=== PATIENT | female | born 1960 | race Caucasian/White ===

== ENCOUNTER 2017-11-19 08:30 | Inpatient (IN) | payer OTHER ==
[2017-11-19 09:24] LABS: Basophils # (Auto) 0.1 K/mm3 (0.0-0.1); Eosinophils # (Auto) 0.3 K/mm3 (0.0-0.4); Eosinophils % (Auto) 3.6 % (0.0-4.3); Hematocrit 32.1 % (30.3-42.9); Hemoglobin 10.3 gm/dl (10.1-14.3); Lymphocytes # (Auto) 2.4 K/mm3 (1.2-5.4); Lymphocytes % (Auto) 29.5 % (13.4-35.0); Mean Corpuscular HGB Conc 32 % (30-34); Mean Corpuscular Volume 79 fl (79-97); Monocytes # (Auto) 0.7 K/mm3 (0.0-0.8); Monocytes % (Auto) 8.6 % (0.0-7.3); Platelet Count 550 K/mm3 (140-440); Red Blood Count 4.06 M/mm3 (3.65-5.03); Red Cell Distribution Width 14.3 % (13.2-15.2)
[2017-11-19 09:29] LABS: Alanine Aminotransferase 15 units/L (7-56); Albumin 3.3 g/dL (3.9-5); BUN/Creatinine Ratio 37; Blood Urea Nitrogen 11 mg/dL (7-17); Calcium 9.3 mg/dL (8.4-10.2); Hemolysis Index 50; Lipase 22 units/L (13-60)
[2017-11-19 09:45] LABS: Mean Corpuscular Hemoglobin 25 pg (28-32)
[2017-11-19 09:45] LABS: Bacteria,Urine 1+ /HPF (Negative); Bilirubin,Urine NEG (Negative); Blood,Urine NEG (Negative); Color,Urine Yellow (Yellow); Mucus,Urine FEW /HPF; Urobilinogen,Urine < 2.0 mg/dL (<2.0)
[2017-11-19] MEDS ORDERED: PROTONIX IV ONE (10:04)
[2017-11-19] MEDS ORDERED: NACL 0.9% 1000 ML 1,000 ML IV ONE (10:04)
[2017-11-19] MEDS ORDERED: ZOFRAN IV ONE ×2 (10:04→14:38)
[2017-11-19] MEDS ORDERED: MORPHINE IV ONE (10:04)
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
--- NOTE | 2017-11-19 11:27 | Cat Scan Report ---
CT ABDOMEN PELVIS WITH CONTRAST: HISTORY: abdominal pain, left flank pain. COMPARISON: none. TECHNIQUE: Helical CT in 1.25mm intervals following IV contrast. Sagittal and coronal reconstructions. FINDINGS: Lung bases: Normal. Liver: Normal. Biliary system: There are multiple calcified gallstones. No biliary dilatation or inflammation. Pancreas: Normal. Spleen: Normal. Kidneys/ureters/bladder: There appears to be a small encapsulated collection posterior to left kidney measuring 3.7 x 1.7 cm. The etiology of this is unclear. This could represent a resolving hematoma or abscess. Please correlate with the patient's history. There are a few scattered renal cysts. No evidence for mass or hydronephrosis. The ureters and bladder are unremarkable. Adrenal glands: Normal. Aorta: Normal. Intestines: There is a small area of focal bowel wall thickening in the ascending colon with surrounding inflammatory fat stranding. This may represent a focal colitis. There is no obvious underlying mass although it cannot be excluded. No obvious diverticula in this area. The remaining bowel loops are within normal limits. Appendix: Not confidently identified. Pelvic viscera: Normal. Ascites: None. Adenopathy: None. Musculoskeletal: Normal. IMPRESSION: Left perinephric collection as described above. Small area of inflammation in the ascending colon which is most consistent with a focal colitis. Cholelithiasis. Scattered renal cysts.
[2017-11-19] MEDS ORDERED: DILAUDID IV ONE ×2 (12:08→14:38)
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
--- NOTE | 2017-11-19 13:45 | Event Note ---
Date: 11/19/17 Reviewed history, CT, and lab findings. I spoke with Dr. Velasco from urology. We collectively decided that in light of her poor blood glucose control, no leukocytosis, and being afebrile, conservative management is appropriate for now. The patient can be reimaged after antibiotics and medical optimization. Should there be a continued need for drainage, our service can be contacted again. Thank you.
[2017-11-19] MEDS ORDERED: REGLAN IV ONE (15:53)
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
[2017-11-20] MEDS: NACL 0.9% 1000 ML 1,000 ML IV SCH ×2 (00:38→12:38)
[2017-11-20] MEDS: MORPHINE IV PRN (01:27)
[2017-11-20] MEDS: NOVOLOG SUB-Q SCH ×4 (08:32→22:55)
[2017-11-20] MEDS ORDERED: ZESTRIL PO SCH (10:00)
[2017-11-20] MEDS: GLUCOPHAGE PO SCH ×2 (10:35→18:25)
[2017-11-20] MEDS: COZAAR PO SCH (10:35)
[2017-11-20] MEDS: cefTRIAXone 2 GM in NACL 0.9% 20 ML IV SCH (12:33)
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
--- NOTE | 2017-11-20 16:39 | Cat Scan Report ---
FINAL REPORT EXAM: CT ABDOMEN PELVIS WO CON HISTORY: abscess----kidney TECHNIQUE: CT abdomen and pelvis without contrast PRIORS: None. FINDINGS: No acute abnormality identified in the lung bases. No focal abnormality identified within the liver parenchyma. Multiple dense foci are seen layering within the lumen of the gallbladder consistent with small stones. The spleen demonstrates normal size and attenuation. No pancreatic abnormalities seen. Right kidney demonstrates no evidence for hydronephrosis or nephrolithiasis. There is mild right perinephric stranding. There is a focal hypodensity at the upper pole the right kidney measuring 2.9 centimeters probable cyst although incompletely characterized. There is prominent left perinephric stranding with focal intermediate density collection posterior to the left kidney in the perinephric space. No evidence for hydronephrosis. No evidence for nephrolithiasis no ureteral calculi are identified. The adrenal glands are unremarkable. Abdominal aorta is normal in caliber. No pathologically enlarged lymph nodes are identified. No signs of free fluid or free air No evidence of small bowel dilatation. No evidence of colonic dilatation. No pericolonic inflammatory change seen. Noted is a calcification at the and fundus of the uterus most consistent with a calcified a subserosal fibroid. IMPRESSION: Left perinephric stranding with a low-density of collection in the perinephric space. Nonspecific finding could reflect bacterial nephritis, postobstructive finding or subacute hemorrhagic collection. Cholelithiasis Calcified subserosal uterine fibroid noted.
--- NOTE | 2017-11-20 17:20 | Progress Note ---
Assessment and Plan Assessment and plan: 57f with uncontrolled dm, insulin dependent, pw with left flank pain and fever Left Perinephric abscess Urology and IR consults appreciated.planned for drainage, will repeat CT continue abx UTI fup urine cx, continue abx T2DM (type 2 diabetes mellitus), uncontrolled continue insulins, a1c 11 HTN (hypertension) continue to optimize BP meds Hyponatremia resolved Hyperkalemia mild, monitor levels History Interval history: c/o L flank pain c/o fever no nausea, no vomiting, no cp no sob Hospitalist Physical - Constitutional Vitals: Temp Pulse Resp BP Pulse Ox 98.2 F 73 14 134/56 97 11/20/17 08:06 11/20/17 08:06 11/20/17 08:06 11/20/17 08:06 11/20/17 08:06 General appearance: Present: no acute distress, well-nourished - EENT Eyes: Present: PERRL ENT: hearing intact, clear oral mucosa - Neck Neck: Present: supple, normal ROM - Respiratory Respiratory effort: normal Respiratory: bilateral: CTA - Cardiovascular Rhythm: regular Heart Sounds: Present: S1 & S2 - Extremities Extremities: no ischemia, No edema Peripheral Pulses: within normal limits - Abdominal General gastrointestinal: soft, non-tender, other (left flank tenderness) - Integumentary Integumentary: Present: clear, warm, dry - Psychiatric Psychiatric: appropriate mood/affect, intact judgment & insight - Neurologic Neurologic: CNII-XII intact, moves all extremities Results - Labs CBC & Chem 7: 11/19/17 08:51 11/19/17 08:51 Labs: Laboratory Last Values WBC 8.1 K/mm3 (4.5-11.0) 11/19/17 08:51 RBC 4.06 M/mm3 (3.65-5.03) 11/19/17 08:51 Hgb 10.3 gm/dl (10.1-14.3) 11/19/17 08:51 Hct 32.1 % (30.3-42.9) 11/19/17 08:51 MCV 79 fl (79-97) 11/19/17 08:51 MCH 25 pg (28-32) L 11/19/17 08:51 MCHC 32 % (30-34) 11/19/17 08:51 RDW 14.3 % (13.2-15.2) 11/19/17 08:51 Plt Count 550 K/mm3 (140-440) H 11/19/17 08:51 Lymph % (Auto) 29.5 % (13.4-35.0) 11/19/17 08:51 [place] % (Auto) 8.6 % (0.0-7.3) H 11/19/17 08:51 Eos % (Auto) 3.6 % (0.0-4.3) 11/19/17 08:51 Baso % (Auto) 1.0 % (0.0-1.8) 11/19/17 08:51 Lymph # 2.4 K/mm3 (1.2-5.4) 11/19/17 08:51 [place] # 0.7 K/mm3 (0.0-0.8) 11/19/17 08:51 Eos # 0.3 K/mm3 (0.0-0.4) 11/19/17 08:51 Baso # 0.1 K/mm3 (0.0-0.1) 11/19/17 08:51 Seg Neutrophils % 57.3 % (40.0-70.0) 11/19/17 08:51 Seg Neutrophils # 4.6 K/mm3 (1.8-7.7) 11/19/17 08:51 Sodium 132 mmol/L (137-145) L 11/19/17 08:51 Potassium 5.1 mmol/L (3.6-5.0) H 11/19/17 08:51 Chloride 100.9 mmol/L (98-107) 11/19/17 08:51 Carbon Dioxide 23 mmol/L (22-30) 11/19/17 08:51 Anion Gap 13 mmol/L 11/19/17 08:51 BUN 11 mg/dL (7-17) 11/19/17 08:51 Creatinine 0.3 mg/dL (0.7-1.2) L 11/19/17 08:51 Estimated GFR > 60 ml/min 11/19/17 08:51 BUN/Creatinine Ratio 37 % 11/19/17 08:51 Glucose 224 mg/dL (65-100) H 11/19/17 08:51 POC Glucose 219 (70-105) H 11/20/17 11:19 Hemoglobin A1c 11.1 % (4-6) H 11/20/17 07:23 Calcium 9.3 mg/dL (8.4-10.2) 11/19/17 08:51 Total Bilirubin 0.20 mg/dL (0.1-1.2) 11/19/17 08:51 AST < 15 units/L (5-40) 11/19/17 08:51 ALT 15 units/L (7-56) 11/19/17 08:51 Alkaline Phosphatase 134 units/L (35-129) H 11/19/17 08:51 Total Protein 7.8 g/dL (6.3-8.2) 11/19/17 08:51 Albumin 3.3 g/dL (3.9-5) L 11/19/17 08:51 Albumin/Globulin Ratio 0.7 % 11/19/17 08:51 Lipase 22 units/L (13-60) 11/19/17 08:51 Urine Color Yellow (Yellow) 11/19/17 09:04 Urine Turbidity Clear (Clear) 11/19/17 09:04 Urine pH 5.0 (5.0-7.0) 11/19/17 09:04 Ur Specific [place] 1.011 (1.003-1.030) 11/19/17 09:04 Urine Protein 100 mg/dl mg/dL (Negative) 11/19/17 09:04 Urine Glucose (UA) Neg mg/dL (Negative) 11/19/17 09:04 Urine Ketones Neg mg/dL (Negative) 11/19/17 09:04 Urine Blood Neg (Negative) 11/19/17 09:04 Urine Nitrite Neg (Negative) 11/19/17 09:04 Urine Bilirubin Neg (Negative) 11/19/17 09:04 Urine Urobilinogen < 2.0 mg/dL (<2.0) 11/19/17 09:04 Ur Leukocyte Esterase Tr (Negative) 11/19/17 09:04 Urine WBC (Auto) 12.0 /HPF (0.0-6.0) H 11/19/17 09:04 Urine RBC (Auto) 1.0 /HPF (0.0-6.0) 11/19/17 09:04 Urine Bacteria (Auto) 1+ /HPF (Negative) 11/19/17 09:04 Urine Mucus Few /HPF 11/19/17 09:04
[2017-11-21] MEDS: NACL 0.9% 1000 ML 1,000 ML IV SCH ×2 (06:02→21:48)
--- NOTE | 2017-11-21 08:46 | Event Note ---
Date: 11/21/17 Contacted about persistent left sided pain with left perinephric fluid collection. Unfortunately, the patient ate a complete breakfast. Make patient NPO after MN. CT drainainge of abscess tomorrow.
[2017-11-21] MEDS: NOVOLOG SUB-Q SCH ×4 (09:00→23:11)
[2017-11-21] MEDS: GLUCOPHAGE PO SCH ×2 (10:11→17:52)
[2017-11-21] MEDS: COZAAR PO SCH (10:15)
[2017-11-21] MEDS: cefTRIAXone 2 GM in NACL 0.9% 20 ML IV SCH (10:21)
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
[2017-11-21] MEDS ORDERED: NOVOLOG SUB-Q ONE (13:00)
--- NOTE | 2017-11-21 15:29 | Progress Note ---
Assessment and Plan Assessment and plan: 57f with uncontrolled dm, insulin dependent, pw with left flank pain and fever Left Perinephric abscess Urology and IR consults appreciated.planned for IR drainage today continue abx UTI fup urine cx, continue abx T2DM (type 2 diabetes mellitus), uncontrolled continue insulins, a1c 11 HTN (hypertension) continue to optimize BP meds Hyponatremia resolved Hyperkalemia mild, monitor levels History Interval history: c/o L flank pain c/o fever no nausea, no vomiting, no cp no sob Hospitalist Physical - Physical exam Narrative exam: General appearance: Present: no acute distress, well-nourished - EENT Eyes: Present: PERRL ENT: hearing intact, clear oral mucosa - Neck Neck: Present: supple, normal ROM - Respiratory Respiratory effort: normal Respiratory: bilateral: CTA - Cardiovascular Rhythm: regular Heart Sounds: Present: S1 & S2 - Extremities Extremities: no ischemia, No edema Peripheral Pulses: within normal limits - Abdominal General gastrointestinal: soft, non-tender, other (left flank tenderness) - Integumentary Integumentary: Present: clear, warm, dry - Psychiatric Psychiatric: appropriate mood/affect, intact judgment & insight - Neurologic Neurologic: CNII-XII intact, moves all extremities - Constitutional Vitals: Temp Pulse Resp BP Pulse Ox 98.7 F 78 18 144/66 98 11/20/17 23:07 11/21/17 10:15 11/21/17 10:00 11/21/17 10:15 11/20/17 23:07 General appearance: Present: no acute distress Results - Labs CBC & Chem 7: 11/19/17 08:51 11/19/17 08:51 Labs: Laboratory Last Values WBC 8.1 K/mm3 (4.5-11.0) 11/19/17 08:51 RBC 4.06 M/mm3 (3.65-5.03) 11/19/17 08:51 Hgb 10.3 gm/dl (10.1-14.3) 11/19/17 08:51 Hct 32.1 % (30.3-42.9) 11/19/17 08:51 MCV 79 fl (79-97) 11/19/17 08:51 MCH 25 pg (28-32) L 11/19/17 08:51 MCHC 32 % (30-34) 11/19/17 08:51 RDW 14.3 % (13.2-15.2) 11/19/17 08:51 Plt Count 550 K/mm3 (140-440) H 11/19/17 08:51 Lymph % (Auto) 29.5 % (13.4-35.0) 11/19/17 08:51 [place] % (Auto) 8.6 % (0.0-7.3) H 11/19/17 08:51 Eos % (Auto) 3.6 % (0.0-4.3) 11/19/17 08:51 Baso % (Auto) 1.0 % (0.0-1.8) 11/19/17 08:51 Lymph # 2.4 K/mm3 (1.2-5.4) 11/19/17 08:51 [place] # 0.7 K/mm3 (0.0-0.8) 11/19/17 08:51 Eos # 0.3 K/mm3 (0.0-0.4) 11/19/17 08:51 Baso # 0.1 K/mm3 (0.0-0.1) 11/19/17 08:51 Seg Neutrophils % 57.3 % (40.0-70.0) 11/19/17 08:51 Seg Neutrophils # 4.6 K/mm3 (1.8-7.7) 11/19/17 08:51 Sodium 132 mmol/L (137-145) L 11/19/17 08:51 Potassium 5.1 mmol/L (3.6-5.0) H 11/19/17 08:51 Chloride 100.9 mmol/L (98-107) 11/19/17 08:51 Carbon Dioxide 23 mmol/L (22-30) 11/19/17 08:51 Anion Gap 13 mmol/L 11/19/17 08:51 BUN 11 mg/dL (7-17) 11/19/17 08:51 Creatinine 0.3 mg/dL (0.7-1.2) L 11/19/17 08:51 Estimated GFR > 60 ml/min 11/19/17 08:51 BUN/Creatinine Ratio 37 % 11/19/17 08:51 Glucose 224 mg/dL (65-100) H 11/19/17 08:51 POC Glucose 413 (70-105) H 11/21/17 13:03 Hemoglobin A1c 11.1 % (4-6) H 11/20/17 07:23 Calcium 9.3 mg/dL (8.4-10.2) 11/19/17 08:51 Total Bilirubin 0.20 mg/dL (0.1-1.2) 11/19/17 08:51 AST < 15 units/L (5-40) 11/19/17 08:51 ALT 15 units/L (7-56) 11/19/17 08:51 Alkaline Phosphatase 134 units/L (35-129) H 11/19/17 08:51 Total Protein 7.8 g/dL (6.3-8.2) 11/19/17 08:51 Albumin 3.3 g/dL (3.9-5) L 11/19/17 08:51 Albumin/Globulin Ratio 0.7 % 11/19/17 08:51 Lipase 22 units/L (13-60) 11/19/17 08:51 Urine Color Yellow (Yellow) 11/19/17 09:04 Urine Turbidity Clear (Clear) 11/19/17 09:04 Urine pH 5.0 (5.0-7.0) 11/19/17 09:04 Ur Specific [place] 1.011 (1.003-1.030) 11/19/17 09:04 Urine Protein 100 mg/dl mg/dL (Negative) 11/19/17 09:04 Urine Glucose (UA) Neg mg/dL (Negative) 11/19/17 09:04 Urine Ketones Neg mg/dL (Negative) 11/19/17 09:04 Urine Blood Neg (Negative) 11/19/17 09:04 Urine Nitrite Neg (Negative) 11/19/17 09:04 Urine Bilirubin Neg (Negative) 11/19/17 09:04 Urine Urobilinogen < 2.0 mg/dL (<2.0) 11/19/17 09:04 Ur Leukocyte Esterase Tr (Negative) 11/19/17 09:04 Urine WBC (Auto) 12.0 /HPF (0.0-6.0) H 11/19/17 09:04 Urine RBC (Auto) 1.0 /HPF (0.0-6.0) 11/19/17 09:04 Urine Bacteria (Auto) 1+ /HPF (Negative) 02/20/18 09:04 Urine Mucus Few /HPF 11/19/17 09:04
[2017-11-21] MEDS: MORPHINE IV PRN (21:48)
[2017-11-22] MEDS: NOVOLOG SUB-Q SCH ×4 (08:07→22:53)
[2017-11-22] MEDS: GLUCOPHAGE PO SCH ×2 (08:10→17:10)
[2017-11-22] MEDS: COZAAR PO SCH (10:09)
[2017-11-22] MEDS: cefTRIAXone 2 GM in NACL 0.9% 20 ML IV SCH (10:10)
[2017-11-22] MEDS ORDERED: VERSED IV NR (11:09)
[2017-11-22] MEDS ORDERED: SUBLIMAZE IV ONE (11:09)
[2017-11-22] MEDS ORDERED: SUBLIMAZE ONE (11:29)
[2017-11-22] MEDS ORDERED: XYLOCAINE 1%/ EPI 1:100,000 INFILTRATI ONE (12:37)
--- NOTE | 2017-11-22 13:13 | Post Operative Note ---
Date of procedure: 11/22/17 (.) Pre-op diagnosis: Left perinephric abscess Post-op diagnosis: same Procedure: CT guided placement of an 8 Fr APD drain in the left perinephric abscess Anesthesia: local (w/ conscious sedation) Surgeon: KEVIN TONG Estimated blood loss: minimal Specimen disposition: to lab Condition: stable Disposition: floor
[2017-11-22] MEDS: MORPHINE IV PRN ×3 (15:45→23:42)
--- NOTE | 2017-11-22 16:32 | Event Note ---
Date: 11/22/17 Recommend BID catheter flushes with 10 mL NS. Drain to bulb suction. Recommend CT of the abdomen and pelvis with contrast on saturday for reassessment. Subsequent probable catheter removal.
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
--- NOTE | 2017-11-22 16:36 | Cat Scan Report ---
EXAM: CT guided left perinephric 8 Fr APD drain placement CLINICAL INDICATION: Left perinephric fluid collection with pain. DATE: 11/22/17 TRAVEL MANAGER: KEVIN TONG MD MEDICATIONS: Conscious sedation using Versed and fentanyl was performed under guidance of radiologic nursing. Continuous cardiopulmonary monitoring was utilized. PROCEDURE: Following an explanation of the risks, benefits and alternatives; written informed consent was obtained. The patient was brought to the CT suite and placed in the prone position on the CT table. Manager Applied CT was performed of the kidneys. After determining the appropriate site, the skin was infiltrated with lidocaine and a finder needle was placed. Intermittent CT was performed until the desired position was identified. The 18 gauge trocar needle was inserted into the left perinephric collection. Aspiration was performed and sent to the lab for analysis. J wire was then advanced through the needle and into the collection. The needle was exchanged for multiple dilators that were used to serially dilate over the wire. An 8 Fr APD drain was advanced over the wire and metal stiffener. The metal stiffener and wire were removed. Final CT scanning was performed. The pigtail was secured and aspirated until no more material could be aspirated. Secured with 2-0 Silk and stat-lock. Sterile bandage was applied. The patient tolerated the procedure well. There were no immediate postprocedural complications. FINDINGS: 1. Initial CT demonstrates a left perinephric fluid collection. There is a satisfactory window for CT drainage. 2. Intermittent CT demonstrates the 18 gauge needle was placed in the left perinephric fluid collection. 3. Wire is coiled in the left perinephric fluid collection. 4. Final CT documents placement of a 8 Fr drain in the left perinephric fluid collection. 5. A total of 8 mL of purulent material was aspirated through the drain and initial needle. IMPRESSION: Successful CT guided 8 Fr APD drain placement in a fluid collection/abscess.
[2017-11-22] MEDS: NACL 0.9% 1000 ML 1,000 ML IV SCH (23:41)
[2017-11-23] MEDS: NOVOLOG SUB-Q SCH ×4 (09:59→22:22)
[2017-11-23] MEDS: cefTRIAXone 2 GM in NACL 0.9% 20 ML IV SCH (10:05)
[2017-11-23] MEDS: GLUCOPHAGE PO SCH ×2 (10:05→17:50)
[2017-11-23] MEDS: COZAAR PO SCH (10:06)
[2017-11-23] MEDS: MORPHINE IV PRN ×2 (10:36→23:55)
--- NOTE | 2017-11-23 12:53 | Progress Note ---
Assessment and Plan Assessment and plan: 57f with uncontrolled dm, insulin dependent, pw with left flank pain and fever Left Perinephric abscess Urology and IR consults appreciated.sp IR drainage 11/21 continue abx, fup cx UTI fup urine cx, continue abx T2DM (type 2 diabetes mellitus), uncontrolled continue insulins, a1c 11, improving HTN (hypertension) continue to optimize BP meds Hyponatremia resolved Hyperkalemia mild, monitor levels History Interval history: c/o L flank pain c/o fever no nausea, no vomiting, no cp no sob Hospitalist Physical - Physical exam Narrative exam: General appearance: Present: no acute distress, well-nourished - EENT Eyes: Present: PERRL ENT: hearing intact, clear oral mucosa - Neck Neck: Present: supple, normal ROM - Respiratory Respiratory effort: normal Respiratory: bilateral: CTA - Cardiovascular Rhythm: regular Heart Sounds: Present: S1 & S2 - Extremities Extremities: no ischemia, No edema Peripheral Pulses: within normal limits - Abdominal General gastrointestinal: soft, non-tender, other (left flank tenderness) - Integumentary Integumentary: Present: clear, warm, dry - Psychiatric Psychiatric: appropriate mood/affect, intact judgment & insight - Neurologic Neurologic: CNII-XII intact, moves all extremities - Constitutional Vitals: Temp Pulse Resp BP Pulse Ox 97.8 F 80 22 149/59 97 11/23/17 08:07 11/23/17 08:07 11/23/17 08:07 11/23/17 08:07 11/23/17 10:00 General appearance: Present: no acute distress Results - Labs CBC & Chem 7: 11/19/17 08:51 11/19/17 08:51 Labs: Laboratory Last Values WBC 8.1 K/mm3 (4.5-11.0) 11/19/17 08:51 RBC 4.06 M/mm3 (3.65-5.03) 11/19/17 08:51 Hgb 10.3 gm/dl (10.1-14.3) 11/19/17 08:51 Hct 32.1 % (30.3-42.9) 11/19/17 08:51 MCV 79 fl (79-97) 11/19/17 08:51 MCH 25 pg (28-32) L 11/19/17 08:51 MCHC 32 % (30-34) 11/19/17 08:51 RDW 14.3 % (13.2-15.2) 11/19/17 08:51 Plt Count 550 K/mm3 (140-440) H 11/19/17 08:51 Lymph % (Auto) 29.5 % (13.4-35.0) 11/19/17 08:51 [place] % (Auto) 8.6 % (0.0-7.3) H 11/19/17 08:51 Eos % (Auto) 3.6 % (0.0-4.3) 11/19/17 08:51 Baso % (Auto) 1.0 % (0.0-1.8) 11/19/17 08:51 Lymph # 2.4 K/mm3 (1.2-5.4) 11/19/17 08:51 [place] # 0.7 K/mm3 (0.0-0.8) 11/19/17 08:51 Eos # 0.3 K/mm3 (0.0-0.4) 11/19/17 08:51 Baso # 0.1 K/mm3 (0.0-0.1) 11/19/17 08:51 Seg Neutrophils % 57.3 % (40.0-70.0) 11/19/17 08:51 Seg Neutrophils # 4.6 K/mm3 (1.8-7.7) 11/19/17 08:51 Sodium 132 mmol/L (137-145) L 11/19/17 08:51 Potassium 5.1 mmol/L (3.6-5.0) H 11/19/17 08:51 Chloride 100.9 mmol/L (98-107) 11/19/17 08:51 Carbon Dioxide 23 mmol/L (22-30) 11/19/17 08:51 Anion Gap 13 mmol/L 11/19/17 08:51 BUN 11 mg/dL (7-17) 11/19/17 08:51 Creatinine 0.3 mg/dL (0.7-1.2) L 11/19/17 08:51 Estimated GFR > 60 ml/min 11/19/17 08:51 BUN/Creatinine Ratio 37 % 11/19/17 08:51 Glucose 224 mg/dL (65-100) H 11/19/17 08:51 POC Glucose 247 (70-105) H 11/23/17 12:02 Hemoglobin A1c 11.1 % (4-6) H 11/20/17 07:23 Calcium 9.3 mg/dL (8.4-10.2) 11/19/17 08:51 Total Bilirubin 0.20 mg/dL (0.1-1.2) 11/19/17 08:51 AST < 15 units/L (5-40) 11/19/17 08:51 ALT 15 units/L (7-56) 11/19/17 08:51 Alkaline Phosphatase 134 units/L (35-129) H 11/19/17 08:51 Total Protein 7.8 g/dL (6.3-8.2) 11/19/17 08:51 Albumin 3.3 g/dL (3.9-5) L 11/19/17 08:51 Albumin/Globulin Ratio 0.7 % 11/19/17 08:51 Lipase 22 units/L (13-60) 11/19/17 08:51 Urine Color Yellow (Yellow) 11/19/17 09:04 Urine Turbidity Clear (Clear) 11/19/17 09:04 Urine pH 5.0 (5.0-7.0) 11/19/17 09:04 Ur Specific [place] 1.011 (1.003-1.030) 11/19/17 09:04 Urine Protein 100 mg/dl mg/dL (Negative) 11/19/17 09:04 Urine Glucose (UA) Neg mg/dL (Negative) 11/19/17 09:04 Urine Ketones Neg mg/dL (Negative) 11/19/17 09:04 Urine Blood Neg (Negative) 11/19/17 09:04 Urine Nitrite Neg (Negative) 11/19/17 09:04 Urine Bilirubin Neg (Negative) 11/19/17 09:04 Urine Urobilinogen < 2.0 mg/dL (<2.0) 11/19/17 09:04 Ur Leukocyte Esterase Tr (Negative) 11/19/17 09:04 Urine WBC (Auto) 12.0 /HPF (0.0-6.0) H 11/19/17 09:04 Urine RBC (Auto) 1.0 /HPF (0.0-6.0) 11/19/17 09:04 Urine Bacteria (Auto) 1+ /HPF (Negative) 11/19/17 09:04 Urine Mucus Few /HPF 11/19/17 09:04
[2017-11-23] MEDS: NACL 0.9% 1000 ML 1,000 ML IV SCH (13:59)
[2017-11-23] MEDS: ZOFRAN IV PRN (13:59)
[2017-11-24] MEDS: MORPHINE IV PRN ×5 (06:22→22:21)
[2017-11-24] MEDS: NACL 0.9% 1000 ML 1,000 ML IV SCH ×2 (06:25→18:18)
[2017-11-24] MEDS: NOVOLOG SUB-Q SCH ×4 (06:59→22:30)
[2017-11-24 08:26] LABS: BUN/Creatinine Ratio 20; Blood Urea Nitrogen 6 mg/dL (7-17); Calcium 8.3 mg/dL (8.4-10.2); Hemolysis Index 38
[2017-11-24 08:28] LABS: Basophils % (Auto) 0.5 % (0.0-1.8); Eosinophils # (Auto) 0.2 K/mm3 (0.0-0.4); Eosinophils % (Auto) 1.8 % (0.0-4.3); Hematocrit 29.6 % (30.3-42.9); Hemoglobin 9.6 gm/dl (10.1-14.3); Lymphocytes # (Auto) 1.7 K/mm3 (1.2-5.4); Lymphocytes % (Auto) 18.3 % (13.4-35.0); Mean Corpuscular HGB Conc 33 % (30-34); Mean Corpuscular Volume 78 fl (79-97); Monocytes # (Auto) 0.9 K/mm3 (0.0-0.8); Monocytes % (Auto) 9.3 % (0.0-7.3); Platelet Count 513 K/mm3 (140-440); Red Blood Count 3.79 M/mm3 (3.65-5.03); Red Cell Distribution Width 14.5 % (13.2-15.2)
[2017-11-24 08:41] LABS: Mean Corpuscular Hemoglobin 25 pg (28-32)
[2017-11-24] MEDS: GLUCOPHAGE PO SCH ×2 (08:45→17:05)
[2017-11-24] MEDS: cefTRIAXone 2 GM in NACL 0.9% 20 ML IV SCH (10:30)
[2017-11-24] MEDS: COZAAR PO SCH (10:31)
--- NOTE | 2017-11-24 12:09 | Progress Note ---
Assessment and Plan Assessment and plan: 57f with uncontrolled dm, insulin dependent, pw with left flank pain and fever Left Perinephric abscess Urology and IR consults appreciated.sp IR drainage 11/[address] culture growing ESBL Klebsiella, change abx to Levaquin, fup ID consult UTI fup urine cx, continue abx T2DM (type 2 diabetes mellitus), uncontrolled continue insulins, a1c 11, improving, increase insulin dose today HTN (hypertension) improved, change back to lisinopril which her home med Hyponatremia resolved Hyperkalemia recevied IVF, now resolved History Interval history: c/o L flank pain denies fever no nausea, no vomiting, no cp no sob Hospitalist Physical - Physical exam Narrative exam: General appearance: Present: no acute distress, well-nourished - EENT Eyes: Present: PERRL ENT: hearing intact, clear oral mucosa - Neck Neck: Present: supple, normal ROM - Respiratory Respiratory effort: normal Respiratory: bilateral: CTA - Cardiovascular Rhythm: regular Heart Sounds: Present: S1 & S2 - Extremities Extremities: no ischemia, No edema Peripheral Pulses: within normal limits - Abdominal General gastrointestinal: soft, non-tender, other (left flank tenderness) - Integumentary Integumentary: Present: clear, warm, dry - Psychiatric Psychiatric: appropriate mood/affect, intact judgment & insight - Neurologic Neurologic: CNII-XII intact, moves all extremities - Constitutional Vitals: Temp Pulse Resp BP Pulse Ox 98.9 F 83 20 156/73 95 11/24/17 07:50 11/24/17 10:31 11/24/17 07:50 11/24/17 10:31 11/24/17 07:50 General appearance: Present: no acute distress Results - Labs CBC & Chem 7: 11/24/17 08:01 11/24/17 08:01 Labs: Laboratory Last Values WBC 9.2 K/mm3 (4.5-11.0) 11/24/17 08:01 RBC 3.79 M/mm3 (3.65-5.03) 11/24/17 08:01 Hgb 9.6 gm/dl (10.1-14.3) L 11/24/17 08:01 Hct 29.6 % (30.3-42.9) L 11/24/17 08:01 MCV 78 fl (79-97) L 11/24/17 08:01 MCH 25 pg (28-32) L 11/24/17 08:01 MCHC 33 % (30-34) 11/24/17 08:01 RDW 14.5 % (13.2-15.2) 11/24/17 08:01 Plt Count 513 K/mm3 (140-440) H 11/24/17 08:01 Lymph % (Auto) 18.3 % (13.4-35.0) 11/24/17 08:01 [place] % (Auto) 9.3 % (0.0-7.3) H 11/24/17 08:01 Eos % (Auto) 1.8 % (0.0-4.3) 11/24/17 08:01 Baso % (Auto) 0.5 % (0.0-1.8) 11/24/17 08:01 Lymph # 1.7 K/mm3 (1.2-5.4) 11/24/17 08:01 [place] # 0.9 K/mm3 (0.0-0.8) H 11/24/17 08:01 Eos # 0.2 K/mm3 (0.0-0.4) 11/24/17 08:01 Baso # 0.0 K/mm3 (0.0-0.1) 11/24/17 08:01 Seg Neutrophils % 70.1 % (40.0-70.0) H 11/24/17 08:01 Seg Neutrophils # 6.5 K/mm3 (1.8-7.7) 11/24/17 08:01 Sodium 139 mmol/L (137-145) D 11/24/17 08:01 Potassium 3.7 mmol/L (3.6-5.0) D 11/24/17 08:01 Chloride 102.1 mmol/L (98-107) 11/24/17 08:01 Carbon Dioxide 22 mmol/L (22-30) 11/24/17 08:01 Anion Gap 19 mmol/L 11/24/17 08:01 BUN 6 mg/dL (7-17) L 11/24/17 08:01 Creatinine 0.3 mg/dL (0.7-1.2) L 11/24/17 08:01 Estimated GFR > 60 ml/min 11/24/17 08:01 BUN/Creatinine Ratio 20 % 11/24/17 08:01 Glucose 159 mg/dL (65-100) H 11/24/17 08:01 POC Glucose 141 (70-105) H 11/24/17 06:14 Hemoglobin A1c 11.1 % (4-6) H 11/20/17 07:23 Calcium 8.3 mg/dL (8.4-10.2) L 11/24/17 08:01 Total Bilirubin 0.20 mg/dL (0.1-1.2) 11/19/17 08:51 AST < 15 units/L (5-40) 11/19/17 08:51 ALT 15 units/L (7-56) 11/19/17 08:51 Alkaline Phosphatase 134 units/L (35-129) H 11/19/17 08:51 Total Protein 7.8 g/dL (6.3-8.2) 11/19/17 08:51 Albumin 3.3 g/dL (3.9-5) L 11/19/17 08:51 Albumin/Globulin Ratio 0.7 % 11/19/17 08:51 Lipase 22 units/L (13-60) 11/19/17 08:51 Urine Color Yellow (Yellow) 11/19/17 09:04 Urine Turbidity Clear (Clear) 11/19/17 09:04 Urine pH 5.0 (5.0-7.0) 11/19/17 09:04 Ur Specific [place] 1.011 (1.003-1.030) 11/19/17 09:04 Urine Protein 100 mg/dl mg/dL (Negative) 11/19/17 09:04 Urine Glucose (UA) Neg mg/dL (Negative) 11/19/17 09:04 Urine Ketones Neg mg/dL (Negative) 11/19/17 09:04 Urine Blood Neg (Negative) 11/19/17 09:04 Urine Nitrite Neg (Negative) 11/19/17 09:04 Urine Bilirubin Neg (Negative) 11/19/17 09:04 Urine Urobilinogen < 2.0 mg/dL (<2.0) 11/19/17 09:04 Ur Leukocyte Esterase Tr (Negative) 11/19/17 09:04 Urine WBC (Auto) 12.0 /HPF (0.0-6.0) H 11/19/17 09:04 Urine RBC (Auto) 1.0 /HPF (0.0-6.0) 11/19/17 09:04 Urine Bacteria (Auto) 1+ /HPF (Negative) 11/19/17 09:04 Urine Mucus Few /HPF 11/19/17 09:04
[2017-11-24] MEDS: LEVAQUIN 750MG/150ML 750 MG/150 ML BAG IV SCH (21:21)
[2017-11-25] MEDS: MORPHINE IV PRN ×3 (04:53→23:21)
[2017-11-25] MEDS ORDERED: NACL ONE (08:27)
--- NOTE | 2017-11-25 09:22 | Cat Scan Report ---
CT ABDOMEN PELVIS WITH CONTRAST: HISTORY: Left perinephric abscess followup. COMPARISON: 11/20/17. TECHNIQUE: Helical CT in 1.25mm intervals following IV contrast. Sagittal and coronal reconstructions. FINDINGS: Lung bases: Normal. Liver: Normal. Biliary system: Cholelithiasis is unchanged. No biliary dilatation or inflammation. Pancreas: 3.3 cm cyst in the body of the pancreas is unchanged. Spleen: Normal. Kidneys/ureters/bladder: A percutaneous pigtail catheter has been placed in the left perinephric collection. The collection has decreased by 50%. Right renal cysts are stable. No obstructive uropathy or mass. The ureters and bladder are unremarkable. Adrenal glands: Normal. Aorta: Normal. Intestines: Normal. Appendix: Not confidently identified. Pelvic viscera: Normal. Ascites: None. Adenopathy: None. Musculoskeletal: Normal. IMPRESSION: A percutaneous drain has been placed in the left perinephric collection which has decreased by at least 50% since 11/20/17.
[2017-11-25] MEDS: NOVOLOG SUB-Q SCH ×3 (09:51→18:29)
[2017-11-25] MEDS: GLUCOPHAGE PO SCH ×2 (10:13→19:53)
[2017-11-25] MEDS: NACL 0.9% 1000 ML 1,000 ML IV SCH (10:13)
[2017-11-25] MEDS: LEVAQUIN 750MG/150ML 750 MG/150 ML BAG IV SCH (10:13)
[2017-11-25] MEDS: ZESTRIL PO SCH (10:13)
[2017-11-25] MEDS: PERCOCET 5/325 PO PRN ×2 (11:39→18:27)
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
--- NOTE | 2017-11-25 14:45 | Progress Note ---
Assessment and Plan Assessment and plan: 57f with uncontrolled dm, insulin dependent, pw with left flank pain and fever sepsis/ Left Perinephric abscess Urology and IR consults appreciated.sp IR drainage 11/[address] culture growing ESBL Klebsiella, change abx to Levaquin, fup ID consult UTI continue abx T2DM (type 2 diabetes mellitus), uncontrolled continue insulins, a1c 11, improving, increase insulin dose today HTN (hypertension) improved, change back to lisinopril which her home med Hyponatremia resolved Hyperkalemia recevied IVF, now resolved History Interval history: c/o L flank pain denies fever no nausea, no vomiting, no cp no sob Hospitalist Physical - Physical exam Narrative exam: General appearance: Present: no acute distress, well-nourished - EENT Eyes: Present: PERRL ENT: hearing intact, clear oral mucosa - Neck Neck: Present: supple, normal ROM - Respiratory Respiratory effort: normal Respiratory: bilateral: CTA - Cardiovascular Rhythm: regular Heart Sounds: Present: S1 & S2 - Extremities Extremities: no ischemia, No edema Peripheral Pulses: within normal limits - Abdominal General gastrointestinal: soft, non-tender, other (left flank tenderness) - Integumentary Integumentary: Present: clear, warm, dry - Psychiatric Psychiatric: appropriate mood/affect, intact judgment & insight - Neurologic Neurologic: CNII-XII intact, moves all extremities - Constitutional Vitals: Temp Pulse Resp BP Pulse Ox 99.1 F 87 18 151/47 94 11/25/17 07:56 11/25/17 07:56 11/25/17 07:56 11/25/17 07:56 11/25/17 07:56 General appearance: Present: no acute distress Results - Labs CBC & Chem 7: 11/24/17 08:01 11/24/17 08:01 Labs: Laboratory Last Values WBC 9.2 K/mm3 (4.5-11.0) 11/24/17 08:01 RBC 3.79 M/mm3 (3.65-5.03) 11/24/17 08:01 Hgb 9.6 gm/dl (10.1-14.3) L 11/24/17 08:01 Hct 29.6 % (30.3-42.9) L 11/24/17 08:01 MCV 78 fl (79-97) L 11/24/17 08:01 MCH 25 pg (28-32) L 11/24/17 08:01 MCHC 33 % (30-34) 11/24/17 08:01 RDW 14.5 % (13.2-15.2) 11/24/17 08:01 Plt Count 513 K/mm3 (140-440) H 11/24/17 08:01 Lymph % (Auto) 18.3 % (13.4-35.0) 11/24/17 08:01 [place] % (Auto) 9.3 % (0.0-7.3) H 11/24/17 08:01 Eos % (Auto) 1.8 % (0.0-4.3) 11/24/17 08:01 Baso % (Auto) 0.5 % (0.0-1.8) 11/24/17 08:01 Lymph # 1.7 K/mm3 (1.2-5.4) 11/24/17 08:01 [place] # 0.9 K/mm3 (0.0-0.8) H 11/24/17 08:01 Eos # 0.2 K/mm3 (0.0-0.4) 11/24/17 08:01 Baso # 0.0 K/mm3 (0.0-0.1) 11/24/17 08:01 Seg Neutrophils % 70.1 % (40.0-70.0) H 11/24/17 08:01 Seg Neutrophils # 6.5 K/mm3 (1.8-7.7) 11/24/17 08:01 Sodium 139 mmol/L (137-145) D 11/24/17 08:01 Potassium 3.7 mmol/L (3.6-5.0) D 11/24/17 08:01 Chloride 102.1 mmol/L (98-107) 11/24/17 08:01 Carbon Dioxide 22 mmol/L (22-30) 11/24/17 08:01 Anion Gap 19 mmol/L 11/24/17 08:01 BUN 6 mg/dL (7-17) L 11/24/17 08:01 Creatinine 0.3 mg/dL (0.7-1.2) L 11/24/17 08:01 Estimated GFR > 60 ml/min 11/24/17 08:01 BUN/Creatinine Ratio 20 % 11/24/17 08:01 Glucose 159 mg/dL (65-100) H 11/24/17 08:01 POC Glucose 195 (70-105) H 11/25/17 11:54 Hemoglobin A1c 11.1 % (4-6) H 11/20/17 07:23 Calcium 8.3 mg/dL (8.4-10.2) L 11/24/17 08:01 Total Bilirubin 0.20 mg/dL (0.1-1.2) 11/19/17 08:51 AST < 15 units/L (5-40) 11/19/17 08:51 ALT 15 units/L (7-56) 11/19/17 08:51 Alkaline Phosphatase 134 units/L (35-129) H 11/19/17 08:51 Total Protein 7.8 g/dL (6.3-8.2) 11/19/17 08:51 Albumin 3.3 g/dL (3.9-5) L 11/19/17 08:51 Albumin/Globulin Ratio 0.7 % 11/19/17 08:51 Lipase 22 units/L (13-60) 11/19/17 08:51 Urine Color Yellow (Yellow) 11/19/17 09:04 Urine Turbidity Clear (Clear) 11/19/17 09:04 Urine pH 5.0 (5.0-7.0) 11/19/17 09:04 Ur Specific [place] 1.011 (1.003-1.030) 11/19/17 09:04 Urine Protein 100 mg/dl mg/dL (Negative) 11/19/17 09:04 Urine Glucose (UA) Neg mg/dL (Negative) 11/19/17 09:04 Urine Ketones Neg mg/dL (Negative) 11/19/17 09:04 Urine Blood Neg (Negative) 11/19/17 09:04 Urine Nitrite Neg (Negative) 11/19/17 09:04 Urine Bilirubin Neg (Negative) 11/19/17 09:04 Urine Urobilinogen < 2.0 mg/dL (<2.0) 11/19/17 09:04 Ur Leukocyte Esterase Tr (Negative) 11/19/17 09:04 Urine WBC (Auto) 12.0 /HPF (0.0-6.0) H 11/19/17 09:04 Urine RBC (Auto) 1.0 /HPF (0.0-6.0) 11/19/17 09:04 Urine Bacteria (Auto) 1+ /HPF (Negative) 11/19/17 09:04 Urine Mucus Few /HPF 11/19/17 09:04
--- NOTE | 2017-11-25 16:44 | Progress Note ---
History Interval history: Patient seen and examined with family member at bedside. Continues to complain of Left sided flank pain. Labs and nursing notes reviewed. Hospitalist Physical - Constitutional Vitals: Temp Pulse Resp BP Pulse Ox 99.1 F 81 18 130/42 95 11/25/17 15:51 11/25/17 15:51 11/25/17 15:51 11/25/17 15:51 11/25/17 15:51 General appearance: Present: mild distress, other (ill appearing) - EENT Eyes: Present: PERRL, EOM intact ENT: hearing intact, clear oral mucosa - Neck Neck: Present: supple, normal ROM - Respiratory Respiratory effort: normal Respiratory: bilateral: CTA - Cardiovascular Rhythm: regular Heart Sounds: Present: S1 & S2 - Extremities Extremities: no ischemia, No edema - Abdominal General gastrointestinal: soft, non-tender, non-distended - Integumentary Integumentary: Present: clear, warm, dry - Psychiatric Psychiatric: appropriate mood/affect, cooperative - Neurologic Neurologic: CNII-XII intact, moves all extremities - Allied Health Allied health notes reviewed: nursing Results - Labs CBC & Chem 7: 11/24/17 08:01 11/24/17 08:01 Labs: Laboratory Last Values WBC 9.2 K/mm3 (4.5-11.0) 11/24/17 08:01 RBC 3.79 M/mm3 (3.65-5.03) 11/24/17 08:01 Hgb 9.6 gm/dl (10.1-14.3) L 11/24/17 08:01 Hct 29.6 % (30.3-42.9) L 11/24/17 08:01 MCV 78 fl (79-97) L 11/24/17 08:01 MCH 25 pg (28-32) L 11/24/17 08:01 MCHC 33 % (30-34) 11/24/17 08:01 RDW 14.5 % (13.2-15.2) 11/24/17 08:01 Plt Count 513 K/mm3 (140-440) H 11/24/17 08:01 Lymph % (Auto) 18.3 % (13.4-35.0) 11/24/17 08:01 [place] % (Auto) 9.3 % (0.0-7.3) H 11/24/17 08:01 Eos % (Auto) 1.8 % (0.0-4.3) 11/24/17 08:01 Baso % (Auto) 0.5 % (0.0-1.8) 11/24/17 08:01 Lymph # 1.7 K/mm3 (1.2-5.4) 11/24/17 08:01 [place] # 0.9 K/mm3 (0.0-0.8) H 11/24/17 08:01 Eos # 0.2 K/mm3 (0.0-0.4) 11/24/17 08:01 Baso # 0.0 K/mm3 (0.0-0.1) 11/24/17 08:01 Seg Neutrophils % 70.1 % (40.0-70.0) H 11/24/17 08:01 Seg Neutrophils # 6.5 K/mm3 (1.8-7.7) 11/24/17 08:01 Sodium 139 mmol/L (137-145) D 11/24/17 08:01 Potassium 3.7 mmol/L (3.6-5.0) D 11/24/17 08:01 Chloride 102.1 mmol/L (98-107) 11/24/17 08:01 Carbon Dioxide 22 mmol/L (22-30) 11/24/17 08:01 Anion Gap 19 mmol/L 11/24/17 08:01 BUN 6 mg/dL (7-17) L 11/24/17 08:01 Creatinine 0.3 mg/dL (0.7-1.2) L 11/24/17 08:01 Estimated GFR > 60 ml/min 11/24/17 08:01 BUN/Creatinine Ratio 20 % 11/24/17 08:01 Glucose 159 mg/dL (65-100) H 11/24/17 08:01 POC Glucose 252 (70-105) H 11/25/17 15:56 Hemoglobin A1c 11.1 % (4-6) H 11/20/17 07:23 Calcium 8.3 mg/dL (8.4-10.2) L 11/24/17 08:01 Total Bilirubin 0.20 mg/dL (0.1-1.2) 11/19/17 08:51 AST < 15 units/L (5-40) 11/19/17 08:51 ALT 15 units/L (7-56) 11/19/17 08:51 Alkaline Phosphatase 134 units/L (35-129) H 11/19/17 08:51 Total Protein 7.8 g/dL (6.3-8.2) 11/19/17 08:51 Albumin 3.3 g/dL (3.9-5) L 11/19/17 08:51 Albumin/Globulin Ratio 0.7 % 11/19/17 08:51 Lipase 22 units/L (13-60) 11/19/17 08:51 Urine Color Yellow (Yellow) 11/19/17 09:04 Urine Turbidity Clear (Clear) 11/19/17 09:04 Urine pH 5.0 (5.0-7.0) 11/19/17 09:04 Ur Specific [place] 1.011 (1.003-1.030) 11/19/17 09:04 Urine Protein 100 mg/dl mg/dL (Negative) 11/19/17 09:04 Urine Glucose (UA) Neg mg/dL (Negative) 11/19/17 09:04 Urine Ketones Neg mg/dL (Negative) 11/19/17 09:04 Urine Blood Neg (Negative) 11/19/17 09:04 Urine Nitrite Neg (Negative) 11/19/17 09:04 Urine Bilirubin Neg (Negative) 11/19/17 09:04 Urine Urobilinogen < 2.0 mg/dL (<2.0) 11/19/17 09:04 Ur Leukocyte Esterase Tr (Negative) 11/19/17 09:04 Urine WBC (Auto) 12.0 /HPF (0.0-6.0) H 11/19/17 09:04 Urine RBC (Auto) 1.0 /HPF (0.0-6.0) 11/19/17 09:04 Urine Bacteria (Auto) 1+ /HPF (Negative) 11/19/17 09:04 Urine Mucus Few /HPF 11/19/17 09:04
[2017-11-25] MEDS: MERREM 1,000 MG in NACL 0.9% 100 ML IV SCH ×2 (19:50→22:51)
[2017-11-26] MEDS: NOVOLOG SUB-Q SCH ×5 (00:59→22:36)
[2017-11-26] MEDS: PERCOCET 5/325 PO PRN (06:50)
[2017-11-26] MEDS: MERREM 1,000 MG in NACL 0.9% 100 ML IV SCH ×3 (09:24→22:24)
[2017-11-26] MEDS: GLUCOPHAGE PO SCH ×2 (10:55→18:05)
[2017-11-26] MEDS: MORPHINE IV PRN (10:56)
[2017-11-26] MEDS: ZESTRIL PO SCH (10:56)
--- NOTE | 2017-11-26 11:16 | Progress Note ---
<VELVET LANDA - Last Filed: 11/26/17 15:48> Assessment and Plan Assessment and plan: 57f with uncontrolled dm, insulin dependent, pw with left flank pain and fever sepsis/ Left Perinephric abscess Urology and IR consults appreciated.sp IR drainage 11/[address] culture growing ESBL Klebsiella, meropenem initiated yesterday by ID UTI continue abx T2DM (type 2 diabetes mellitus), uncontrolled continue insulins, a1c 11, improving HTN (hypertension) improved, change back to lisinopril which her home med Hyponatremia resolved Hyperkalemia received IVF, now resolved anemia ?? Chronicity DVT prophylaxis History Interval history: Patient seen and examined. No new events overnight. Labs and nursing notes reviewed Hospitalist Physical - Constitutional Vitals: Temp Pulse Resp BP Pulse Ox 98.9 F 83 18 145/68 96 11/26/17 08:28 11/26/17 08:28 11/26/17 08:28 11/26/17 08:28 11/26/17 08:28 General appearance: Present: mild distress, well-nourished, obese - EENT Eyes: Present: PERRL, EOM intact ENT: hearing intact, clear oral mucosa - Neck Neck: Present: supple, normal ROM - Respiratory Respiratory effort: normal Respiratory: bilateral: CTA - Cardiovascular Rhythm: regular Heart Sounds: Present: S1 & S2 - Extremities Extremities: no ischemia, No edema - Abdominal General gastrointestinal: soft, tender (left flank) - Integumentary Integumentary: Present: clear, warm, dry - Psychiatric Psychiatric: appropriate mood/affect, cooperative - Neurologic Neurologic: CNII-XII intact, moves all extremities - Allied Health Allied health notes reviewed: nursing Results - Labs CBC & Chem 7: 11/24/17 08:01 11/24/17 08:01 Labs: Laboratory Last Values WBC 9.2 K/mm3 (4.5-11.0) 11/24/17 08:01 RBC 3.79 M/mm3 (3.65-5.03) 11/24/17 08:01 Hgb 9.6 gm/dl (10.1-14.3) L 11/24/17 08:01 Hct 29.6 % (30.3-42.9) L 11/24/17 08:01 MCV 78 fl (79-97) L 11/24/17 08:01 MCH 25 pg (28-32) L 11/24/17 08:01 MCHC 33 % (30-34) 11/24/17 08:01 RDW 14.5 % (13.2-15.2) 11/24/17 08:01 Plt Count 513 K/mm3 (140-440) H 11/24/17 08:01 Lymph % (Auto) 18.3 % (13.4-35.0) 11/24/17 08:01 [place] % (Auto) 9.3 % (0.0-7.3) H 11/24/17 08:01 Eos % (Auto) 1.8 % (0.0-4.3) 11/24/17 08:01 Baso % (Auto) 0.5 % (0.0-1.8) 11/24/17 08:01 Lymph # 1.7 K/mm3 (1.2-5.4) 11/24/17 08:01 [place] # 0.9 K/mm3 (0.0-0.8) H 11/24/17 08:01 Eos # 0.2 K/mm3 (0.0-0.4) 11/24/17 08:01 Baso # 0.0 K/mm3 (0.0-0.1) 11/24/17 08:01 Seg Neutrophils % 70.1 % (40.0-70.0) H 11/24/17 08:01 Seg Neutrophils # 6.5 K/mm3 (1.8-7.7) 11/24/17 08:01 Sodium 139 mmol/L (137-145) D 11/24/17 08:01 Potassium 3.7 mmol/L (3.6-5.0) D 11/24/17 08:01 Chloride 102.1 mmol/L (98-107) 11/24/17 08:01 Carbon Dioxide 22 mmol/L (22-30) 11/24/17 08:01 Anion Gap 19 mmol/L 11/24/17 08:01 BUN 6 mg/dL (7-17) L 11/24/17 08:01 Creatinine 0.3 mg/dL (0.7-1.2) L 11/24/17 08:01 Estimated GFR > 60 ml/min 11/24/17 08:01 BUN/Creatinine Ratio 20 % 11/24/17 08:01 Glucose 159 mg/dL (65-100) H 11/24/17 08:01 POC Glucose 187 (70-105) H 11/26/17 06:42 Hemoglobin A1c 11.1 % (4-6) H 11/20/17 07:23 Calcium 8.3 mg/dL (8.4-10.2) L 11/24/17 08:01 Total Bilirubin 0.20 mg/dL (0.1-1.2) 11/19/17 08:51 AST < 15 units/L (5-40) 11/19/17 08:51 ALT 15 units/L (7-56) 11/19/17 08:51 Alkaline Phosphatase 134 units/L (35-129) H 11/19/17 08:51 Total Protein 7.8 g/dL (6.3-8.2) 11/19/17 08:51 Albumin 3.3 g/dL (3.9-5) L 11/19/17 08:51 Albumin/Globulin Ratio 0.7 % 11/19/17 08:51 Lipase 22 units/L (13-60) 11/19/17 08:51 Urine Color Yellow (Yellow) 11/19/17 09:04 Urine Turbidity Clear (Clear) 11/19/17 09:04 Urine pH 5.0 (5.0-7.0) 11/19/17 09:04 Ur Specific [place] 1.011 (1.003-1.030) 11/19/17 09:04 Urine Protein 100 mg/dl mg/dL (Negative) 11/19/17 09:04 Urine Glucose (UA) Neg mg/dL (Negative) 11/19/17 09:04 Urine Ketones Neg mg/dL (Negative) 11/19/17 09:04 Urine Blood Neg (Negative) 11/19/17 09:04 Urine Nitrite Neg (Negative) 11/19/17 09:04 Urine Bilirubin Neg (Negative) 11/19/17 09:04 Urine Urobilinogen < 2.0 mg/dL (<2.0) 11/19/17 09:04 Ur Leukocyte Esterase Tr (Negative) 11/19/17 09:04 Urine WBC (Auto) 12.0 /HPF (0.0-6.0) H 11/19/17 09:04 Urine RBC (Auto) 1.0 /HPF (0.0-6.0) 11/19/17 09:04 Urine Bacteria (Auto) 1+ /HPF (Negative) 11/19/17 09:04 Urine Mucus Few /HPF 11/19/17 09:04 <MARIALUISA RUTHERFORD M - Last Filed: 11/27/17 16:03> Assessment and Plan Assessment and plan: I saw and evaluated the patient. I agree with the findings and the plan of care as documented in the PA's note. Hospitalist Physical - Constitutional Vitals: Temp Pulse Resp BP Pulse Ox 98.5 F 77 23 152/48 94 11/27/17 08:14 11/27/17 08:14 11/27/17 08:14 11/27/17 08:14 11/27/17 08:14 Results - Labs CBC & Chem 7: 11/26/17 18:05 11/26/17 18:05 Labs: Laboratory Last Values WBC 10.8 K/mm3 (4.5-11.0) 11/26/17 18:05 RBC 3.70 M/mm3 (3.65-5.03) 11/26/17 18:05 Hgb 9.3 gm/dl (10.1-14.3) L 11/26/17 18:05 Hct 29.0 % (30.3-42.9) L 11/26/17 18:05 MCV 79 fl (79-97) 11/26/17 18:05 MCH 25 pg (28-32) L 11/26/17 18:05 MCHC 32 % (30-34) 11/26/17 18:05 RDW 14.4 % (13.2-15.2) 11/26/17 18:05 Plt Count 531 K/mm3 (140-440) H 11/26/17 18:05 Lymph % (Auto) 15.1 % (13.4-35.0) 11/26/17 18:05 [place] % (Auto) 9.8 % (0.0-7.3) H 11/26/17 18:05 Eos % (Auto) 1.4 % (0.0-4.3) 11/26/17 18:05 Baso % (Auto) 0.7 % (0.0-1.8) 11/26/17 18:05 Lymph # 1.6 K/mm3 (1.2-5.4) 11/26/17 18:05 [place] # 1.1 K/mm3 (0.0-0.8) H 11/26/17 18:05 Eos # 0.2 K/mm3 (0.0-0.4) 11/26/17 18:05 Baso # 0.1 K/mm3 (0.0-0.1) 11/26/17 18:05 Seg Neutrophils % 73.1 % (40.0-70.0) H 11/26/17 18:05 Seg Neutrophils # 8.1 K/mm3 (1.8-7.7) H 11/26/17 18:05 Sodium 139 mmol/L (137-145) 11/26/17 18:05 Potassium 3.7 mmol/L (3.6-5.0) 11/26/17 18:05 Chloride 100.6 mmol/L (98-107) 11/26/17 18:05 Carbon Dioxide 22 mmol/L (22-30) 11/26/17 18:05 Anion Gap 20 mmol/L 11/26/17 18:05 BUN 5 mg/dL (7-17) L 11/26/17 18:05 Creatinine 0.3 mg/dL (0.7-1.2) L 11/26/17 18:05 Estimated GFR > 60 ml/min 11/26/17 18:05 BUN/Creatinine Ratio 17 % 11/26/17 18:05 Glucose 112 mg/dL (65-100) H 11/26/17 18:05 POC Glucose 118 (70-105) H 11/27/17 12:08 Hemoglobin A1c 11.1 % (4-6) H 11/20/17 07:23 Calcium 8.4 mg/dL (8.4-10.2) 11/26/17 18:05 Total Bilirubin 0.20 mg/dL (0.1-1.2) 11/19/17 08:51 AST < 15 units/L (5-40) 11/19/17 08:51 ALT 15 units/L (7-56) 11/19/17 08:51 Alkaline Phosphatase 134 units/L (35-129) H 11/19/17 08:51 C-Reactive Protein 9.50 mg/dL (0.00-1.30) H 11/26/17 18:05 Total Protein 7.8 g/dL (6.3-8.2) 11/19/17 08:51 Albumin 3.3 g/dL (3.9-5) L 11/19/17 08:51 Albumin/Globulin Ratio 0.7 % 11/19/17 08:51 Lipase 22 units/L (13-60) 11/19/17 08:51 Urine Color Yellow (Yellow) 11/19/17 09:04 Urine Turbidity Clear (Clear) 11/19/17 09:04 Urine pH 5.0 (5.0-7.0) 11/19/17 09:04 Ur Specific [place] 1.011 (1.003-1.030) 11/19/17 09:04 Urine Protein 100 mg/dl mg/dL (Negative) 11/19/17 09:04 Urine Glucose (UA) Neg mg/dL (Negative) 11/19/17 09:04 Urine Ketones Neg mg/dL (Negative) 11/19/17 09:04 Urine Blood Neg (Negative) 11/19/17 09:04 Urine Nitrite Neg (Negative) 11/19/17 09:04 Urine Bilirubin Neg (Negative) 11/19/17 09:04 Urine Urobilinogen < 2.0 mg/dL (<2.0) 11/19/17 09:04 Ur Leukocyte Esterase Tr (Negative) 11/19/17 09:04 Urine WBC (Auto) 12.0 /HPF (0.0-6.0) H 11/19/17 09:04 Urine RBC (Auto) 1.0 /HPF (0.0-6.0) 11/19/17 09:04 Urine Bacteria (Auto) 1+ /HPF (Negative) 11/19/17 09:04 Urine Mucus Few /HPF 11/19/17 09:04
[2017-11-26] MEDS ORDERED: PERCOCET 5/325 PO PRN (11:21)
--- NOTE | 2017-11-26 12:41 | Progress Note ---
<TREV BEAL - Last Filed: 11/26/17 17:16> Assessment and Plan Assessment: 1) Left Perinephric abscess from UTI vs old trauma, etiology most likely ESBL Klebsiella pneumoniae -Abdominal Surgical culture 11/22 +Klebsiella pneumoniae 2) UTI -UA WBC > 12.0 3) Type 2 DM; uncontrolled; A1C 11.1 4) HTN; uncontrolled Plan: -continue meropenem 1 gm iv q 8 hours ESBL Klesiella pneumoniae day 2 -upon discharge will do levaquin 750 mg po daily until 12/08. Ertepenem is the ideal treatment, however, Levaquin is susceptible in vitro -contact isolation Thank you Dr. Downey for your consultation, will follow up with you. Trev Beal NP for Dr. Jeannette Glass MD Infectious Diseases Specialist [facility] ([facility]) M [phone] O [phone] Subjective Date of service: 11/26/17 Interval history: Microbiology: Blood cultures: 11/19 ngtd Abdominal Surgical culture: 11/22 +Klebsiella pneumoniae Repiratory cultures: Urine cultures 11/19 10-100,000Cfu/ml of mixed culture of greater than 2; likely a contaminant Current Antimicrobials: Merepenem 11/25 Previous Antimicrobials: Ceftriaxone 11/20 levaquin 11/24 Objective - Exam Narrative Exam: Eyes: anicteric sclerae, moist conjunctivae; no lid-lag; PERRLA HENT: Atraumatic; oropharynx clear Neck: Trachea midline; supple, no thyromegaly or lymphadenopathy, no thrush Lungs: CTAB CV: RRR, no murmurs Abdomen: Soft, non-tender Extremities: RROM Skin: warm and dry with dressing to left back and drainage tube Psych: calm and cooperative Neuro: alert and oriented x 3, moving all extremities Lines: No CVL / PICC, - Constitutional Vitals: Vital Signs Temp Pulse Resp BP Pulse Ox 98.9 F 83 18 145/68 96 11/26/17 08:28 11/26/17 08:28 11/26/17 08:28 11/26/17 08:28 11/26/17 08:28 Temperature -Last 24 Hours Temperature 98.9 F Temperature 98.9 F Temperature 99.1 F - Labs CBC & Chem 7: 11/24/17 08:01 11/24/17 08:01 Labs: Abnormal lab results 11/25/17 11/25/17 11/26/17 Range/Units 15:56 21:05 06:42 POC Glucose 252 H 211 H 187 H (70-105) <JEANNETTE BOATENG - Last Filed: 11/26/17 17:58> Objective - Constitutional Vitals: Vital Signs Temp Pulse Resp BP Pulse Ox 98.9 F 83 18 145/68 96 11/26/17 08:28 11/26/17 08:28 11/26/17 08:28 11/26/17 08:28 11/26/17 08:28 Temperature -Last 24 Hours Temperature 98.9 F Temperature 98.9 F - Labs CBC & Chem 7: 11/24/17 08:01 11/24/17 08:01 Labs: Abnormal lab results 11/25/17 11/26/17 11/26/17 Range/Units 21:05 06:42 12:40 POC Glucose 211 H 187 H 283 H (70-105) 11/26/17 Range/Units 17:04 POC Glucose 114 H (70-105)
[2017-11-26] MEDS: NACL 0.9% 1000 ML 1,000 ML IV SCH (13:44)
[2017-11-26] MEDS: PERCOCET 5/325 PO SCH (18:04)
[2017-11-26 18:15] LABS: Basophils # (Auto) 0.1 K/mm3 (0.0-0.1); Eosinophils # (Auto) 0.2 K/mm3 (0.0-0.4); Eosinophils % (Auto) 1.4 % (0.0-4.3); Monocytes # (Auto) 1.1 K/mm3 (0.0-0.8); Monocytes % (Auto) 9.8 % (0.0-7.3)
[2017-11-26 18:35] LABS: BUN/Creatinine Ratio 17; Blood Urea Nitrogen 5 mg/dL (7-17); Calcium 8.4 mg/dL (8.4-10.2); Hemolysis Index 4
[2017-11-26 20:02] LABS: Basophils % (Auto) 0.7 % (0.0-1.8); Hemoglobin 9.3 gm/dl (10.1-14.3); Lymphocytes # (Auto) 1.6 K/mm3 (1.2-5.4); Lymphocytes % (Auto) 15.1 % (13.4-35.0); Mean Corpuscular HGB Conc 32 % (30-34); Mean Corpuscular Hemoglobin 25 pg (28-32); Mean Corpuscular Volume 79 fl (79-97); Platelet Count 531 K/mm3 (140-440); Red Cell Distribution Width 14.4 % (13.2-15.2)
[2017-11-26] MEDS: ZOFRAN IV PRN (20:02)
[2017-11-26] MEDS: LOVENOX SUB-Q SCH (22:24)
[2017-11-27] MEDS: PERCOCET 5/325 PO SCH ×4 (00:24→17:45)
[2017-11-27] MEDS: ZOFRAN IV PRN ×3 (00:25→21:33)
[2017-11-27] MEDS: MERREM 1,000 MG in NACL 0.9% 100 ML IV SCH ×3 (06:13→22:55)
[2017-11-27] MEDS: NACL 0.9% 1000 ML 1,000 ML IV SCH (06:13)
[2017-11-27] MEDS: NOVOLOG SUB-Q SCH ×4 (09:06→23:11)
[2017-11-27] MEDS: ZESTRIL PO SCH (12:32)
[2017-11-27] MEDS: GLUCOPHAGE PO SCH ×2 (12:44→17:45)
--- NOTE | 2017-11-27 13:03 | Progress Note ---
<TREV BEAL - Last Filed: 11/27/17 16:22> Assessment and Plan Assessment: 1) Left Perinephric abscess from UTI vs old trauma, etiology most likely ESBL Klebsiella pneumoniae -Abdominal Surgical culture 11/22 +Klebsiella pneumoniae -Abdominal US 11/27 showed the previously described left perinepric abscesses not clearly on the US and has resumably resolved 2) UTI -UA WBC > 12.0 3) Type 2 DM; uncontrolled; A1C 11.1 4) HTN; uncontrolled Plan: -continue meropenem 1 gm iv q 8 hours ESBL Klesiella pneumoniae day 3 -upon discharge will do levaquin 750 mg po daily until 12/08. Ertepenem is the ideal treatment, however, Levaquin is susceptible in vitro -contact isolation Thank you Dr. Downey for your consultation, will follow up with you. Trev Beal NP for Dr. Jeannette Glass MD Infectious Diseases Specialist [facility] ([facility]) M [phone] O [phone] Subjective Date of service: 11/27/17 Interval history: [place] having flank pain, no fever Microbiology: Blood cultures: 11/19 ngtd Abdominal Surgical culture: 11/22 +Klebsiella pneumoniae Repiratory cultures: Urine cultures 11/19 10-100,000Cfu/ml of mixed culture of greater than 2; likely a contaminant Current Antimicrobials: Merepenem 11/25 Previous Antimicrobials: Ceftriaxone 11/20 levaquin 11/24 Objective - Exam Narrative Exam: Eyes: anicteric sclerae, moist conjunctivae; no lid-lag; PERRLA HENT: Atraumatic; oropharynx clear Neck: Trachea midline; supple, no thyromegaly or lymphadenopathy, no thrush Lungs: CTAB CV: RRR, no murmurs Abdomen: Soft, non-tender Extremities: RROM Skin: warm and dry with dressing to left back and drainage tube Psych: calm and cooperative Neuro: alert and oriented x 3, moving all extremities Lines: No CVL / PICC, - Constitutional Vitals: Vital Signs Temp Pulse Resp BP Pulse Ox 98.5 F 77 23 152/48 94 11/27/17 08:14 11/27/17 08:14 11/27/17 08:14 11/27/17 08:14 11/27/17 08:14 Temperature -Last 24 Hours Temperature 98.5 F Temperature 98.5 F - Labs CBC & Chem 7: 11/26/17 18:05 11/26/17 18:05 Labs: Abnormal lab results 11/26/17 11/26/17 11/26/17 Range/Units 12:40 17:04 18:05 Hgb 9.3 L (10.1-14.3) gm/dl Hct 29.0 L (30.3-42.9) % MCH 25 L (28-32) pg Plt Count 531 H (140-440) K/mm3 [place] % (Auto) 9.8 H (0.0-7.3) % [place] # 1.1 H (0.0-0.8) K/mm3 Seg Neutrophils % 73.1 H (40.0-70.0) % Seg Neutrophils # 8.1 H (1.8-7.7) K/mm3 BUN (7-17) mg/dL Creatinine (0.7-1.2) mg/dL Glucose (65-100) mg/dL POC Glucose 283 H 114 H (70-105) C-Reactive Protein (0.00-1.30) mg/dL 11/26/17 11/26/17 11/27/17 Range/Units 18:05 18:05 12:08 Hgb (10.1-14.3) gm/dl Hct (30.3-42.9) % MCH (28-32) pg Plt Count (140-440) K/mm3 [place] % (Auto) (0.0-7.3) % [place] # (0.0-0.8) K/mm3 Seg Neutrophils % (40.0-70.0) % Seg Neutrophils # (1.8-7.7) K/mm3 BUN 5 L (7-17) mg/dL Creatinine 0.3 L (0.7-1.2) mg/dL Glucose 112 H (65-100) mg/dL POC Glucose 118 H (70-105) C-Reactive Protein 9.50 H (0.00-1.30) mg/dL <JEANNETTE BOATENG - Last Filed: 11/27/17 23:02> Objective - Constitutional Vitals: Vital Signs Temp Pulse Resp BP Pulse Ox 98.5 F 78 20 114/29 95 11/27/17 15:45 11/27/17 15:45 11/27/17 15:45 11/27/17 15:45 11/27/17 15:45 Temperature -Last 24 Hours Temperature 98.5 F Temperature 98.6 F Temperature 98.5 F - Labs CBC & Chem 7: 11/26/17 18:05 11/26/17 18:05 Labs: Abnormal lab results 11/27/17 11/27/17 Range/Units 12:08 17:11 POC Glucose 118 H 152 H (70-105)
--- NOTE | 2017-11-27 13:44 | Progress Note ---
<VELVET LANDA - Last Filed: 11/27/17 13:39> Assessment and Plan Assessment and plan: 57f with uncontrolled dm, insulin dependent, pw with left flank pain and fever sepsis/ Left Perinephric abscess Urology and IR consults appreciated.sp IR drainage 11/[address] culture growing ESBL Klebsiella, meropenem initiated yesterday by ID UTI continue abx T2DM (type 2 diabetes mellitus), uncontrolled continue insulins, a1c 11, improving HTN (hypertension) improved, change back to lisinopril which her home med Hyponatremia resolved Hyperkalemia received IVF, now resolved anemia ?? Chronicity DVT prophylaxis History Interval history: Patient seen and examined. No new events overnight. She looks better today, up and ambulating. Labs and nursing notes reviewed she is Hospitalist Physical - Constitutional Vitals: Temp Pulse Resp BP Pulse Ox 98.5 F 77 23 152/48 94 11/27/17 08:14 11/27/17 08:14 11/27/17 08:14 11/27/17 08:14 11/27/17 08:14 General appearance: Present: mild distress, well-nourished, obese - EENT Eyes: Present: PERRL, EOM intact ENT: hearing intact, clear oral mucosa - Neck Neck: Present: supple, normal ROM - Respiratory Respiratory effort: normal Respiratory: bilateral: CTA - Cardiovascular Rhythm: regular Heart Sounds: Present: S1 & S2 - Extremities Extremities: no ischemia, No edema - Abdominal General gastrointestinal: soft, non-tender, non-distended - Integumentary Integumentary: Present: warm, dry (dressing to left back and drainage tube) - Psychiatric Psychiatric: appropriate mood/affect, cooperative - Neurologic Neurologic: CNII-XII intact, moves all extremities - Allied Health Allied health notes reviewed: nursing Results - Labs CBC & Chem 7: 11/26/17 18:05 11/26/17 18:05 Labs: Laboratory Last Values WBC 10.8 K/mm3 (4.5-11.0) 11/26/17 18:05 RBC 3.70 M/mm3 (3.65-5.03) 11/26/17 18:05 Hgb 9.3 gm/dl (10.1-14.3) L 11/26/17 18:05 Hct 29.0 % (30.3-42.9) L 11/26/17 18:05 MCV 79 fl (79-97) 11/26/17 18:05 MCH 25 pg (28-32) L 11/26/17 18:05 MCHC 32 % (30-34) 11/26/17 18:05 RDW 14.4 % (13.2-15.2) 11/26/17 18:05 Plt Count 531 K/mm3 (140-440) H 11/26/17 18:05 Lymph % (Auto) 15.1 % (13.4-35.0) 11/26/17 18:05 [place] % (Auto) 9.8 % (0.0-7.3) H 11/26/17 18:05 Eos % (Auto) 1.4 % (0.0-4.3) 11/26/17 18:05 Baso % (Auto) 0.7 % (0.0-1.8) 11/26/17 18:05 Lymph # 1.6 K/mm3 (1.2-5.4) 11/26/17 18:05 [place] # 1.1 K/mm3 (0.0-0.8) H 11/26/17 18:05 Eos # 0.2 K/mm3 (0.0-0.4) 11/26/17 18:05 Baso # 0.1 K/mm3 (0.0-0.1) 11/26/17 18:05 Seg Neutrophils % 73.1 % (40.0-70.0) H 11/26/17 18:05 Seg Neutrophils # 8.1 K/mm3 (1.8-7.7) H 11/26/17 18:05 Sodium 139 mmol/L (137-145) 11/26/17 18:05 Potassium 3.7 mmol/L (3.6-5.0) 11/26/17 18:05 Chloride 100.6 mmol/L (98-107) 11/26/17 18:05 Carbon Dioxide 22 mmol/L (22-30) 11/26/17 18:05 Anion Gap 20 mmol/L 11/26/17 18:05 BUN 5 mg/dL (7-17) L 11/26/17 18:05 Creatinine 0.3 mg/dL (0.7-1.2) L 11/26/17 18:05 Estimated GFR > 60 ml/min 11/26/17 18:05 BUN/Creatinine Ratio 17 % 11/26/17 18:05 Glucose 112 mg/dL (65-100) H 11/26/17 18:05 POC Glucose 118 (70-105) H 11/27/17 12:08 Hemoglobin A1c 11.1 % (4-6) H 11/20/17 07:23 Calcium 8.4 mg/dL (8.4-10.2) 11/26/17 18:05 Total Bilirubin 0.20 mg/dL (0.1-1.2) 11/19/17 08:51 AST < 15 units/L (5-40) 11/19/17 08:51 ALT 15 units/L (7-56) 11/19/17 08:51 Alkaline Phosphatase 134 units/L (35-129) H 11/19/17 08:51 C-Reactive Protein 9.50 mg/dL (0.00-1.30) H 11/26/17 18:05 Total Protein 7.8 g/dL (6.3-8.2) 11/19/17 08:51 Albumin 3.3 g/dL (3.9-5) L 11/19/17 08:51 Albumin/Globulin Ratio 0.7 % 11/19/17 08:51 Lipase 22 units/L (13-60) 11/19/17 08:51 Urine Color Yellow (Yellow) 11/19/17 09:04 Urine Turbidity Clear (Clear) 11/19/17 09:04 Urine pH 5.0 (5.0-7.0) 11/19/17 09:04 Ur Specific [place] 1.011 (1.003-1.030) 11/19/17 09:04 Urine Protein 100 mg/dl mg/dL (Negative) 11/19/17 09:04 Urine Glucose (UA) Neg mg/dL (Negative) 11/19/17 09:04 Urine Ketones Neg mg/dL (Negative) 11/19/17 09:04 Urine Blood Neg (Negative) 11/19/17 09:04 Urine Nitrite Neg (Negative) 11/19/17 09:04 Urine Bilirubin Neg (Negative) 11/19/17 09:04 Urine Urobilinogen < 2.0 mg/dL (<2.0) 11/19/17 09:04 Ur Leukocyte Esterase Tr (Negative) 11/19/17 09:04 Urine WBC (Auto) 12.0 /HPF (0.0-6.0) H 11/19/17 09:04 Urine RBC (Auto) 1.0 /HPF (0.0-6.0) 11/19/17 09:04 Urine Bacteria (Auto) 1+ /HPF (Negative) 11/19/17 09:04 Urine Mucus Few /HPF 11/19/17 09:04 <MARIALUISA RUTHERFORD M - Last Filed: 11/27/17 15:58> Assessment and Plan Assessment and plan: I saw and evaluated the patient. I agree with the findings and the plan of care as documented in the PA's progress note, with the following corrections and additions. Patient has history of crhon's ds and GI was consulted and patient will need O/P treatment. Hospitalist Physical - Constitutional Vitals: Temp Pulse Resp BP Pulse Ox 98.5 F 77 23 152/48 94 11/27/17 08:14 11/27/17 08:14 11/27/17 08:14 11/27/17 08:14 11/27/17 08:14 Results - Labs CBC & Chem 7: 11/26/17 18:05 11/26/17 18:05 Labs: Laboratory Last Values WBC 10.8 K/mm3 (4.5-11.0) 11/26/17 18:05 RBC 3.70 M/mm3 (3.65-5.03) 11/26/17 18:05 Hgb 9.3 gm/dl (10.1-14.3) L 11/26/17 18:05 Hct 29.0 % (30.3-42.9) L 11/26/17 18:05 MCV 79 fl (79-97) 11/26/17 18:05 MCH 25 pg (28-32) L 11/26/17 18:05 MCHC 32 % (30-34) 11/26/17 18:05 RDW 14.4 % (13.2-15.2) 11/26/17 18:05 Plt Count 531 K/mm3 (140-440) H 11/26/17 18:05 Lymph % (Auto) 15.1 % (13.4-35.0) 11/26/17 18:05 [place] % (Auto) 9.8 % (0.0-7.3) H 11/26/17 18:05 Eos % (Auto) 1.4 % (0.0-4.3) 11/26/17 18:05 Baso % (Auto) 0.7 % (0.0-1.8) 11/26/17 18:05 Lymph # 1.6 K/mm3 (1.2-5.4) 11/26/17 18:05 [place] # 1.1 K/mm3 (0.0-0.8) H 11/26/17 18:05 Eos # 0.2 K/mm3 (0.0-0.4) 11/26/17 18:05 Baso # 0.1 K/mm3 (0.0-0.1) 11/26/17 18:05 Seg Neutrophils % 73.1 % (40.0-70.0) H 11/26/17 18:05 Seg Neutrophils # 8.1 K/mm3 (1.8-7.7) H 11/26/17 18:05 Sodium 139 mmol/L (137-145) 11/26/17 18:05 Potassium 3.7 mmol/L (3.6-5.0) 11/26/17 18:05 Chloride 100.6 mmol/L (98-107) 11/26/17 18:05 Carbon Dioxide 22 mmol/L (22-30) 11/26/17 18:05 Anion Gap 20 mmol/L 11/26/17 18:05 BUN 5 mg/dL (7-17) L 11/26/17 18:05 Creatinine 0.3 mg/dL (0.7-1.2) L 11/26/17 18:05 Estimated GFR > 60 ml/min 11/26/17 18:05 BUN/Creatinine Ratio 17 % 11/26/17 18:05 Glucose 112 mg/dL (65-100) H 11/26/17 18:05 POC Glucose 118 (70-105) H 11/27/17 12:08 Hemoglobin A1c 11.1 % (4-6) H 11/20/17 07:23 Calcium 8.4 mg/dL (8.4-10.2) 11/26/17 18:05 Total Bilirubin 0.20 mg/dL (0.1-1.2) 11/19/17 08:51 AST < 15 units/L (5-40) 11/19/17 08:51 ALT 15 units/L (7-56) 11/19/17 08:51 Alkaline Phosphatase 134 units/L (35-129) H 11/19/17 08:51 C-Reactive Protein 9.50 mg/dL (0.00-1.30) H 11/26/17 18:05 Total Protein 7.8 g/dL (6.3-8.2) 11/19/17 08:51 Albumin 3.3 g/dL (3.9-5) L 11/19/17 08:51 Albumin/Globulin Ratio 0.7 % 11/19/17 08:51 Lipase 22 units/L (13-60) 11/19/17 08:51 Urine Color Yellow (Yellow) 11/19/17 09:04 Urine Turbidity Clear (Clear) 11/19/17 09:04 Urine pH 5.0 (5.0-7.0) 11/19/17 09:04 Ur Specific [place] 1.011 (1.003-1.030) 11/19/17 09:04 Urine Protein 100 mg/dl mg/dL (Negative) 11/19/17 09:04 Urine Glucose (UA) Neg mg/dL (Negative) 11/19/17 09:04 Urine Ketones Neg mg/dL (Negative) 11/19/17 09:04 Urine Blood Neg (Negative) 11/19/17 09:04 Urine Nitrite Neg (Negative) 11/19/17 09:04 Urine Bilirubin Neg (Negative) 11/19/17 09:04 Urine Urobilinogen < 2.0 mg/dL (<2.0) 11/19/17 09:04 Ur Leukocyte Esterase Tr (Negative) 11/19/17 09:04 Urine WBC (Auto) 12.0 /HPF (0.0-6.0) H 11/19/17 09:04 Urine RBC (Auto) 1.0 /HPF (0.0-6.0) 11/19/17 09:04 Urine Bacteria (Auto) 1+ /HPF (Negative) 11/19/17 09:04 Urine Mucus Few /HPF 11/19/17 09:04
--- NOTE | 2017-11-27 14:34 | Ultrasound Report ---
ULTRASOUND ABDOMEN COMPLETE: TECHNIQUE: Transabdominal ultrasound with color Doppler interrogation. HISTORY: Left kidney perinephric abscess. COMPARISON: CT abdomen pelvis dated 11/25/17. FINDINGS: LIVER: Normal. BILIARY SYSTEM: Multiple shadowing gallstones are identified within the gallbladder. Gallbladder wall thickness is normal measuring 2 mm. No surrounding fluid. The CBD measures 3 mm. PANCREAS: Normal. SPLEEN: Normal. KIDNEYS: Both kidneys are normal size, contour and position. Normal echotexture. The left perinephric collection seen on previous CTs is not confidently identified on ultrasound and presumably has resolved. AORTA/IVC: Normal. ASCITES: None. IMPRESSION: The previously described left perinephric abscess is not clearly visualized on ultrasound and has presumably resolved. Cholelithiasis.
--- NOTE | 2017-11-27 15:44 | Gastroenterology Consultation ---
History of Present Illness - Reason for Consult Consult date: 11/27/17 crohn's disease Requesting physician: VELVET LANDA - History of Present Illness Ms Munguia is a 57 yo female who presents with left sided/left flank abdominal pain. She was found to have left renal abscess (on abx with pigtail catheter). She was seen in GI clinic last year (clinic notes reviewed) for chronic LLQ/generalized abd pain, early satiety, and anemia. Procedure reports not in system, however pt has copy of recent colonoscopy that was performed by Dr Martinez on 10/31 (pt report includes colonoscopy pictures and brief findings which stated there were multiple polyps removed, and portions of colitis in proximal colon which was suggestive of possible crohn's disease). Pt not on treatment for crohn's disease, and reports she was to follow-up soon in GI clinic for further management Past History Past Medical History: diabetes Past Surgical History: Other (C-sections and bowel surgeries) Social history: denies: smoking Family history: no significant family history Medications and Allergies Allergies Allergy/AdvReac Type Severity Reaction Status Date / Time No Known Allergies Allergy Unverified 11/19/17 08:49 Home Medications Medication Instructions Recorded Confirmed Last Taken Type Insulin NPH, Human [NovoLIN N] 15 unit SQ QHS 11/19/17 11/19/17 11/18/17 History Lisinopril [Zestril TAB] 10 mg PO QDAY 11/19/17 11/19/17 11/19/17 History Metformin HCl [Glucophage] 500 mg PO BID 11/19/17 11/19/17 11/19/17 History Active Meds: Active Medications Enoxaparin Sodium (Lovenox) 40 mg SUB-Q QDAY@2200 [place] Last Admin: 11/26/17 22:24 Dose: 40 mg Sodium Chloride (Nacl 0.9% 1000 Ml) 1,000 mls @ 75 mls/hr IV DIRECT [place] Last Admin: 11/27/17 06:13 Dose: 75 mls/hr Meropenem 1,000 mg/ Sodium (Chloride) 100 mls @ 100 mls/hr IV Q8HR [place]; Protocol Last Admin: 11/27/17 15:16 Dose: 100 mls/hr Insulin Aspart (Novolog) 0 units SUB-Q ACHS [place]; Protocol Last Admin: 11/27/17 12:39 Dose: Not Given Insulin Human Isoph/Insulin Regular (Novolin 70/30) 27 unit SUB-Q BIDDIAB [facility] Last Admin: 11/27/17 09:06 Dose: Not Given Lisinopril (Zestril) 40 mg PO QDAY [facility] Last Admin: 11/27/17 12:32 Dose: 40 mg Metformin HCl (Glucophage) 500 mg PO BIDDIAB [facility] Last Admin: 11/27/17 12:44 Dose: 500 mg Ondansetron HCl (Zofran) 4 mg IV Q4H PRN PRN Reason: Nausea And Vomiting Last Admin: 11/27/17 10:16 Dose: 4 mg Oxycodone/Acetaminophen (Percocet 5/325) 2 tab PO Q6HR [facility] Last Admin: 11/27/17 12:37 Dose: 2 tab Review of Systems - Review of Systems All systems: negative (per HPI) Exam - Constitutional Vital Signs: Temp Pulse Resp BP Pulse Ox 98.5 F 77 23 152/48 94 11/27/17 08:14 11/27/17 08:14 11/27/17 08:14 11/27/17 08:14 11/27/17 08:14 General appearance: no acute distress, obese - EENT Eyes: PERRL, EOM intact ENT: hearing intact, clear oral mucosa - Neck Neck: supple, normal ROM - Respiratory Respiratory effort: normal Respiratory: bilateral: CTA - Cardiovascular Rhythm: regular Heart Sounds: Present: S1 & S2 Extremities: No edema, Full ROM - Gastrointestinal General gastrointestinal: Present: soft, non-distended, normal bowel sounds, other (midline surgical scar) - Integumentary Integumentary: Present: clear, warm - Neurologic Neurological: alert and oriented x3 - Psychiatric Psychiatric: appropriate mood/affect - Labs CBC & Chem 7: 11/26/17 18:05 11/26/17 18:05 Lab Results: Laboratory Results - last 24 hr 11/26/17 11/26/17 11/26/17 17:04 18:05 18:05 WBC 10.8 RBC 3.70 Hgb 9.3 L Hct 29.0 L MCV 79 MCH 25 L MCHC 32 RDW 14.4 Plt Count 531 H Lymph % (Auto) 15.1 [place] % (Auto) 9.8 H Eos % (Auto) 1.4 Baso % (Auto) 0.7 Lymph # 1.6 [place] # 1.1 H Eos # 0.2 Baso # 0.1 Seg Neutrophils % 73.1 H Seg Neutrophils # 8.1 H Sodium 139 Potassium 3.7 Chloride 100.6 Carbon Dioxide 22 Anion Gap 20 BUN 5 L Creatinine 0.3 L Estimated GFR > 60 BUN/Creatinine Ratio 17 Glucose 112 H POC Glucose 114 H Calcium 8.4 C-Reactive Protein 11/26/17 11/26/17 11/27/17 18:05 22:58 06:09 WBC RBC Hgb Hct MCV MCH MCHC RDW Plt Count Lymph % (Auto) [place] % (Auto) Eos % (Auto) Baso % (Auto) Lymph # [place] # Eos # Baso # Seg Neutrophils % Seg Neutrophils # Sodium Potassium Chloride Carbon Dioxide Anion Gap BUN Creatinine Estimated GFR BUN/Creatinine Ratio Glucose POC Glucose 92 82 Calcium C-Reactive Protein 9.50 H 11/27/17 12:08 WBC RBC Hgb Hct MCV MCH MCHC RDW Plt Count Lymph % (Auto) [place] % (Auto) Eos % (Auto) Baso % (Auto) Lymph # [place] # Eos # Baso # Seg Neutrophils % Seg Neutrophils # Sodium Potassium Chloride Carbon Dioxide Anion Gap BUN Creatinine Estimated GFR BUN/Creatinine Ratio Glucose POC Glucose 118 H Calcium C-Reactive Protein - Imaging CT Scan: report reviewed Assessment and Plan 1. Possible crohn's disease 2. Sepsis 2/2 renal abscess -recent colonoscopy report (pt copy) shows portions/segments of colitis that was suggestive of possible crohn's disease. she should f/u in gi clinic following discharge for further management and work-up. treatment for possible crohn's disease would be started after treatment of current infection.
[2017-11-27] MEDS: LOVENOX SUB-Q SCH (21:33)
[2017-11-28] MEDS: PERCOCET 5/325 PO SCH ×3 (00:03→11:59)
[2017-11-28] MEDS: NACL 0.9% 1000 ML 1,000 ML IV SCH (00:04)
[2017-11-28] MEDS: MERREM 1,000 MG in NACL 0.9% 100 ML IV SCH ×2 (06:12→13:46)
[2017-11-28] MEDS: NOVOLOG SUB-Q SCH ×3 (07:52→17:06)
[2017-11-28] MEDS: GLUCOPHAGE PO SCH (08:45)
[2017-11-28 08:51] VITALS: BP 156/65
[2017-11-28] MEDS: ZESTRIL PO SCH (10:48)
--- NOTE | 2017-11-28 12:55 | Progress Note ---
Assessment and Plan Assessment: 1) Left Perinephric abscess from UTI vs old trauma, etiology most likely ESBL Klebsiella pneumoniae -Abdominal Surgical culture 11/22 +Klebsiella pneumoniae -Abdominal US 11/27 showed the previously described left perinepric abscesses not clearly on the US and has resumably resolved 2) UTI -UA WBC > 12.0 3) Type 2 DM; uncontrolled; A1C 11.1 4) HTN; uncontrolled Plan: -continue meropenem 1 gm iv q 8 hours ESBL Klesiella pneumoniae day 4 -upon discharge will do levaquin 750 mg po daily until 12/08. Ertepenem is the ideal treatment, however, Levaquin is susceptible in vitro -continue contact isolation -follow with Dr. Glass in 2 weeks, [phone] Thank you Dr. Downey for your consultation, will follow up with you. Trev Beal NP for Dr. Jeannette Glass MD Infectious Diseases Specialist [facility] [phone] Subjective Date of service: 11/28/17 Interval history: Flank pain is better, no fever Microbiology: Blood cultures: 11/19 ngtd Abdominal Surgical culture: 11/22 +Klebsiella pneumoniae Repiratory cultures: Urine cultures 11/19 10-100,000Cfu/ml of mixed culture of greater than 2; likely a contaminant Current Antimicrobials: Merepenem 11/25 Previous Antimicrobials: Ceftriaxone 11/20 levaquin 11/24 Objective - Exam Narrative Exam: Eyes: anicteric sclerae, moist conjunctivae; no lid-lag; PERRLA HENT: Atraumatic; oropharynx clear Neck: Trachea midline; supple, no thyromegaly or lymphadenopathy, no thrush Lungs: CTAB CV: RRR, no murmurs Abdomen: Soft, non-tender Extremities: RROM Skin: warm and dry 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
--- NOTE | 2017-11-28 13:15 | Discharge Summary ---
Providers - Providers Date of Admission: 11/19/17 13:43 Date of discharge: 11/28/17 Attending physician: MARIALUISA RUTHERFORD MD 11/19/17 13:58 Consult to Physician [CONS] Urgent Consulting Provider: BENIGNO VELASCO Reason For Exam: perinephric abscess Place consult to:: Dr. Velasco Notified:: Via his office Phone number called:: [phone] Was contact made?: Yes If yes, spoke with:: Dr. Velasco Time called:: 13:33 Comment:: Dr. Maicol Santo ( dr) spoke with Dr. Velasco 11/23/17 07:39 Consult to Physician [CONS] Routine Consulting Provider: BI HATCH Reason For Exam: left perinephric abscess Place consult to:: dr. hatch Notified:: lft. bazan Phone number called:: Was contact made?: No Time called:: 10:12 11/24/17 22:14 Consult to Physician [CONS] Routine Consulting Provider: SUZE BOATENG Reason For Exam: ESBL left perinephric abscess Place consult to:: dr. balderas Notified:: jason Phone number called:: [phone] Was contact made?: Yes If yes, spoke with:Carlos velasquez Time called:: 09:13 11/27/17 10:45 Consult to Physician [CONS] Routine Consulting Provider: ANJUM SEPULVEDA Reason For Exam: crhon's disease Place consult to:: GI/DR. SEPULVEDA Notified:: DR. SEPULVEDA Phone number called:: IN HOUSE Was contact made?: Yes If yes, spoke with:: DR. RIGGS Time called:: 11:22 Primary care physician: P[employer]IC Hospitalization Condition: Stable Disposition: DC-01 TO HOME OR SELFCARE Time spent for discharge: 32 minutes Core Measure Documentation - Palliative Care Palliative Care/ Comfort Measures: Not Applicable - Core Measures Any of the following diagnoses?: none Exam - Constitutional Vitals: Temp Pulse Resp BP Pulse Ox 98.6 F 80 20 156/65 95 11/28/17 08:16 11/28/17 08:16 11/28/17 08:16 11/28/17 08:16 03/01/18 08:16 General appearance: Present: no acute distress, well-nourished - EENT Eyes: Present: PERRL ENT: hearing intact, clear oral mucosa - Neck Neck: Present: supple, normal ROM - Respiratory Respiratory effort: normal Respiratory: bilateral: CTA - Cardiovascular Heart Sounds: Present: S1 & S2. Absent: rub, click - Extremities Extremities: pulses symmetrical, No edema Peripheral Pulses: within normal limits - Abdominal General gastrointestinal: Present: soft, non-tender, non-distended, normal bowel sounds Female genitourinary: Present: normal - Integumentary Integumentary: Present: clear, warm, dry - Musculoskeletal Musculoskeletal: gait normal, strength equal bilaterally - Psychiatric Psychiatric: appropriate mood/affect, intact judgment & insight - Neurologic Neurologic: CNII-XII intact, moves all extremities Plan Activity: advance as tolerated Weight Bearing Status: Weight Bear as Tolerated Diet: low fat, low cholesterol, low salt, diabetic Additional Instructions: follow up with your sales promotion officer after discharge Follow up with: FRANCESCA WOODWARD MD [Primary Care Provider] - 7 Days BENIGNO VELASCO MD [Staff Physician] - 7 Days Prescriptions: Insulin NPH, Human [NovoLIN N] 20 unit SQ QHS #1 vial Levofloxacin [Levaquin] 750 mg PO QDAY #10 tablet Oxycodone HCl/Acetaminophen [Percocet 10/325 mg] 1 each PO Q6HR PRN #12 tablet PRN Reason: Pain
--- NOTE | 2017-11-28 15:57 | Event Note ---
Date: 11/28/17 57-year-old female with left perinephric abscess. Minimal drainage over the last few days. Drain flushed and aspirated and no further debris obtained. Drain removed at bedside. Patient tolerated the procedure well. Proper care discussed with patient with the assistance of the patient's nurse who is fluent in M[place]ese.
== END 2017-11-28 17:37 | disposition home or self-care (01) | DRG 871 ==
LOC: ED 08:30 → 3A 13:43
PROVIDERS: ADMIT Internal Medicine; ATTEND Internal Medicine
PROC: 0W9H30Z Drainage of Retroperitoneum with Drainage Device, Percutaneous Approach (ICD-10-PCS; principal; 2017-11-22)
DX: A41.9 Sepsis, unspecified organism (principal); N15.1 Renal and perinephric abscess; N30.00 Acute cystitis without hematuria; E87.1 Hypo-osmolality and hyponatremia; E11.9 Type 2 diabetes mellitus without complications; I10 Essential (primary) hypertension; E87.5 Hyperkalemia; D64.9 Anemia, unspecified
CPT/HCPCS: 10160; 36415; 74176; 74177; 76700; 77012; 80048; 80053; 81001; 82962; 83036; 83690; 85025; 86140; 87040; 87076; 87086; 87116; 87186; 96361; 96374; 96375; 96376; C1769; C9113; J0696; J1170; J1650; J1815; J1956; J2185; J2250; J2270; J2405; J2765; J3010; J7030; Q9967